=== PATIENT | female | born 1995 | race Caucasian/White ===

== ENCOUNTER 2023-12-17 07:43 | Inpatient (IN) ==
[2023-12-17] MEDS ORDERED: LIDOCAINE 1% LOCAL 20 ML VIAL INFIL PRN (07:52)
[2023-12-17] MEDS ORDERED: OXYTOCIN 30 UNITS/NSS 30 UNITS/500 ML BAG IV PRN ×2 (07:52→23:37)
[2023-12-17 08:19] LABS: Hemoglobin 13.2 g/dl (12.0-16.0); Mean Corpuscular Hemoglobin 30.2 pg (25.0-34.0); Mean Corpuscular Hgb Conc 34.7 g/dL (32.0-36.0); Mean Platelet Volume 10.8 fL (9.4-12.4); Platelet Count 192 K/uL (130-400); RDW Standard Deviation 40.5 fL (36.4-46.3); Red Blood Count 4.37 M/uL (4.20-5.40)
[2023-12-17] MEDS: LACTATED RINGER'S 1,000 ML IV PRN (12:56)
[2023-12-17] MEDS: OXYTOCIN 30 UNITS/NSS 30 UNITS/500 ML BAG IV PRN (13:03)
--- NOTE | 2023-12-17 16:30 | Anesthesiology Consultation ---
Date of Service December 17, 2023 Assessment & Plan (1) Encounter for pre-operative examination: Chart Review Chart Review: Acceptable Risk for Labor Epidural History Height/Weight Height: 5 ft 5 in Weight: 104.78 kg Allergies Allergy/AdvReac Type Severity Reaction Status Date / Time Poultry Allergy Severe Anaphylaxis Verified 12/17/23 08:02 avocado Allergy Unknown Anaphylaxis Verified 12/17/23 08:00 banana Allergy Unknown Anaphylaxis Verified 12/17/23 08:00 egg Allergy Anaphylaxis Verified 12/17/23 08:57 Medications Home Medications Medication Instructions Recorded Confirmed Last Taken [id number] 1 tab PO DAILY 10/31/23 12/17/23 12/12/23 08:30 [ Plus] Active Medications Generic Name Dose Route Start Last Admin Trade Name Freq PRN Reason Stop Dose Admin Oxytocin 30 units in 500 mls @ 12 mls/hr 12/17/23 07:52 12/17/23 15:35 Pitocin 30 Units/Nss IV 12/19/23 07:51 0.72 units/hr .Q24H PRN 12 mls/hr Labor Induction/Augmentation Titration Protocol 0.72 UNITS/HR Lactated Ringer's 1,000 mls @ 125 mls/hr 12/17/23 07:52 12/17/23 12:56 Lr IV 12/19/23 07:51 125 mls/hr .Q8H PRN Administration L&D Protocol Protocol Past Medical History Medical History HPV (human papilloma virus) infection Abnormal Pap smear of cervix 2015, paps normal since Chicken pox Migraine with aura Bipolar 2 disorder Anxiety Past Family History Family History Grandmother (Paternal) Breast cancer Mother Autoimmune disorder Thyroid disease Grandmother (Maternal) Autoimmune disorder Breast cancer Grandfather (Maternal) Diabetes Heart disease Father Hypertension Grandfather (Paternal) Lung cancer Denies family history of Ovarian cancer Colorectal cancer Past Surgical History Surgical History No pertinent past surgical history Social History Smoking Status: Former smoker Do You Dip or Chew Tobacco: No Smoking End Date: December 2022 Hx Alcohol Use: No Hx Substance Use: No Physical Exam Vital Signs Last Vital Signs Temp 36.9 C 12/17/23 12:27 Pulse 90 12/17/23 16:27 Resp 20 12/17/23 07:50 BP 141/91 H 12/17/23 16:22 Pulse Ox 100 12/17/23 16:27 Testing Laboratory Results 12/17/23 08:06 Blood Type A Positive 12/17/23 08:06 Antibody Screen NEGATIVE 12/17/23 08:06 12/17/23 12/17/23 12:58 09:05 POC Glucose 79 98
--- NOTE | 2023-12-17 16:41 | Labor Progress Brief Note ---
Date of Service December 17, 2023 Subjective Patient continues to be anxious and hesitant to have interventions. Agreeable to CVE and discuss further plan. Becoming crampy and uncomfortable but not ready for epidural yet. No ROM, no VB, good FM. Assessment & Plan (1) Encounter for induction of labor: Plan: Winn placed this AM and fell out in a short time. Patient was given a few hours to consider pitocin, discuss it, and feel ready for beginning that step before she consented to proceed further. Pitocin started and has been titrated per protocol. Patient has made small amount of cervical change. Would have discussed AROM vs epidural with her after this exam, but SROM occurred as soon as my fingers touched the bulging amnion. Patient aware this likely means contractions will increase in intensity and is now requesting epidural. Admission and Anticipated Discharge Date Admission Date: December 17, 2023 Physical Exam Genitourinary: Cvx /-2 Tense bulging bag; SROM occurred during exam for copious clear fluid. FHT Cat 1 [place]atte Q3-4 Pit @ 12 Results & Data Vital Signs (Past 12 Hours) Vital Signs Temp Pulse Resp BP Pulse Ox 12/17/23 16:32 99 12/17/23 16:32 92 H 12/17/23 16:27 100 12/17/23 16:27 90 12/17/23 16:22 88 12/17/23 16:22 141/91 H 12/17/23 15:16 93 H 12/17/23 15:16 131/90 12/17/23 14:05 91 H 12/17/23 14:05 134/86 12/17/23 13:09 111 H 12/17/23 13:09 131/87 12/17/23 12:27 98.4 F 12/17/23 12:10 96 H 12/17/23 12:10 136/89 12/17/23 10:36 103 H 12/17/23 10:36 131/90 12/17/23 08:24 99 H 12/17/23 08:24 128/87 12/17/23 08:09 104 H 12/17/23 08:09 132/85 12/17/23 08:08 98.4 F 104 H 132/85 12/17/23 07:53 123 H 128/87 12/17/23 07:50 20 12/17/23 07:50 98.4 F 20 Coding Level of Care Code None Diagnoses Encounter for induction of labor Z34.90
[2023-12-17] MEDS: BUPIVACAINE 0.25% PF 30 ML VIAL ONE (16:58)
[2023-12-17] MEDS ORDERED: ONDANSETRON INJ 2 MG/ML 2 ML VIAL IV PRN (16:59)
[2023-12-17] MEDS: fentANYL 2 MCG/ML BUPIVacaine 0.125%-NSS 100ML BAG ONE (16:59)
[2023-12-17] MEDS ORDERED: SODIUM CHLORIDE 0.9% PF INJ 10 ML VIAL EPI PRN (16:59)
[2023-12-17] MEDS ORDERED: ROPIVACAINE 0.5% PF 5 MG/ML 20 ML VIAL EPI PRN (16:59)
[2023-12-17] MEDS: fentaNYL citrate PF 100 MCG/2 ML VIAL ONE (16:59)
[2023-12-17] MEDS ORDERED: LIDOCAINE 2% MPF LOCAL 5 ML VIAL EPI PRN (16:59)
[2023-12-17] MEDS ORDERED: ePHEDrine sulfate 50 MG/ML AMP IV PRN (16:59)
[2023-12-17] MEDS ORDERED: NALOXONE HCL 0.4 MG/1 ML VIAL/CARP IV PRN (16:59)
[2023-12-17] MEDS ORDERED: fentaNYL citrate PF 100 MCG/2 ML VIAL EPI PRN (16:59)
[2023-12-17] MEDS ORDERED: NALOXONE HCL 1 MG in SODIUM CHLORIDE 0.9% 1,000 ML IV PRN (16:59)
[2023-12-17] MEDS: LIDOCAINE 2%/EPINEPHRINE 1:200,000 20 ML PF ONE (16:59)
[2023-12-17] MEDS ORDERED: BUPIVACAINE 0.25% PF 30 ML VIAL EPI PRN (16:59)
[2023-12-17] MEDS ORDERED: fentANYL 2 MCG/ML BUPIVacaine 0.125%-NSS 100ML BAG EPI PRN (16:59)
[2023-12-17] MEDS: ePHEDrine sulfate 50 MG/ML AMP ONE (17:19)
[2023-12-17] MEDS: SODIUM CHLORIDE 0.9% PF INJ 10 ML VIAL ONE (17:20)
[2023-12-17] MEDS: CALCIUM CARBONATE 500 MG CHEWABLE TAB PO PRN (17:48)
[2023-12-17] MEDS: BUPIVACAINE 0.25% PF 30 ML VIAL EPI STA (18:25)
[2023-12-17] MEDS: fentaNYL citrate PF 100 MCG/2 ML VIAL EPI STA (18:25)
[2023-12-17] MEDS: LIDOCAINE 2%/EPINEPHRINE 1:200,000 20 ML PF EPI STA (18:25)
[2023-12-17] MEDS: SODIUM CHLORIDE 0.9% PF INJ 10 ML VIAL EPI STA (18:26)
[2023-12-17] MEDS ORDERED: NURSING L&D Epidural Breakthrough Pain Update ONE (19:22)
[2023-12-17] MEDS: FAMOTIDINE 20MG IV PUSH 20 MG/5 ML SYR IV ONE (20:14)
--- NOTE | 2023-12-17 22:49 | Delivery Summary ---
Vaginal Delivery Summary Date of Service December 17, 2023 Vaginal Delivery Summary DIAGNOSES: 1. Verde intrauterine at 39w0d gestation. 2. Induction of Labor. 3. Group B Streptococcus Neg. PROCEDURE: Spontaneous vaginal delivery and repair of second degree laceration. SURGEON: Carito Escobar MD. CASTING HOUSE LABORER: None. QUANTITATIVE BLOOD LOSS: 38 mL. COMPLICATIONS: None. PLACENTA: Spontaneous and intact with a 3-vessel cord. DISPOSITION: Stable to labor and delivery. DESCRIPTION: The patient pushed well and brought the head to in DEANA position. The 's head restituted with left shoulder anterior, right shoulder posterior and right hand presenting compound alongside the chin, plus with a loop of cord traveling from the umbilicus over the R shoulder and pulled tight. There was a "turtle sign" with retraction of the head against the perineum immediately after delivery of the head. Ming and Suprapubic pressure were applied without movement. The patient was instructed to rest while I introduced my hand to the posterior vagina, and was able to sweep the R arm in physiologic fashion to deliver the posterior arm. After this was accomplished, Ming and Suprapubic Pressure were reapplied while the patient resumed pushing, and the anterior shoulder then delivered promptly. The remainder of the body delivered without any difficulty, and the infant was placed on the maternal abdomen. It was vigorous and moving all extremities, and making respiratory efforts. The cord was doubly clamped by the MD and then cut. The was taken to the warmer for attention, where it continued to cry audibly. The placenta delivered spontaneously and was noted to be intact and with a 3VC, though notable for a pseudoknot and marginal insertion. The cervix, vagina and perineum were examined and were found to have a second-degree laceration repaired with vicryl in the usual manner, including a crown stitch to rebuild the perineal body. The fundus was firm and lochia minimal immediately after delivery. [facility] Vaginal Delivery Charge Vaginal Delivery Codes: 70716 global code for the antepartum, delivery, and post-
[2023-12-17] MEDS ORDERED: oxyCODONE/ACETAMINOPHEN 5mg/325mg TAB PO PRN (23:37)
[2023-12-17] MEDS ORDERED: HYDROCORTISONE ACETATE 25 MG SUPP PR PRN (23:37)
[2023-12-17] MEDS: IBUPROFEN 600 MG TAB PO PRN (23:53)
[2023-12-18] MEDS: LIDOCAINE 2% JELLY 5 ML TUBE EXT ONE (00:01)
[2023-12-18] MEDS: ACETAMINOPHEN 325 MG TAB PO PRN (05:55)
[2023-12-18 06:16] LABS: Hematocrit (blood only) 36.3 % (37.0-47.0); Hemoglobin 12.3 g/dl (12.0-16.0); Mean Corpuscular Hemoglobin 29.9 pg (25.0-34.0); Mean Corpuscular Hgb Conc 33.9 g/dL (32.0-36.0); Mean Corpuscular Volume 88.3 fL (80.0-100.0); Mean Platelet Volume 10.8 fL (9.4-12.4); Platelet Count 167 K/uL (130-400); RDW Standard Deviation 41.1 fL (36.4-46.3); Red Blood Count 4.11 M/uL (4.20-5.40); White Blood Count 14.86 K/ul (4.8-10.8)
--- NOTE | 2023-12-18 06:47 | Obstetrical Progress Note ---
Date of Service December 18, 2023 Assessment & Plan (1) Encounter for assessment: Plan: Patient is PPD 1 s/p and doing well - Eating well, voiding well, ambulating well - vitals reviewed and within normal limits - pain well controlled with analgesics - OOB, ambulation, diet progression as tolerated - Blood type: A+, GBS neg, rubella immune - Plan to discharge tomorrow - After discharge, 6 week follow up with OB Admission and Anticipated Discharge Date Admission Date: December 17, 2023 Supervising Physician Co-Signing Physician Notes Resident Physician Supervision Note: I interviewed and examined the patient. Discussed with Dr. Larson and agree with findings and plan as documented in the note. Any exceptions or clarifications are listed here: [ ] Documented By: Carito Escobar MD, FACOG Subjective 28 yo post- day 1 s/p Ambulation: ambulating normally Voiding: no voiding problems Passing Gas:: Yes Diet Tolerance:: regular diet Lochia:: Small Feeding Type:: bottle feeding Current Pain Level: 3/10, endorses some cramps and pain while seated Resting comfortably this AM in NAD. Denies CARREON, CP, SOB, N/V/D, LE pain/swelling. Physical Exam Physical Exam: General: patient resting comfortably, NAD, non-toxic in appearance, answers questions appropriately. Skin: warm, dry, intact HEENT: NC/AT, anicteric sclera, conjunctiva without injection, moist mucus membranes. Heart: +S1/S2, regular, no m/r/g Lungs: equal air entry bilaterally, no rales/rhonchi/wheezes Abd: +BS, soft, NT/ND, uterine fundus firm at umbilicus Ext: warm, no clubbing/cyanosis or edema, Elian's neg. Neuro: nonfocal, speech intact, no facial droop, moving all extremities. Results & Data Vital Signs (Past 12 Hours) Vital Signs Temp Pulse Pulse Resp BP BP Pulse Ox 12/18/23 04:00 36.5 C 91 H 18 123/81 97 12/18/23 00:42 105 H 126/76 12/18/23 00:40 18 12/18/23 00:29 105 H 118/71 12/18/23 00:14 114 H 109/64 12/18/23 00:10 18 12/17/23 23:59 118 H 12/17/23 23:59 133/73 12/17/23 23:44 117 H 12/17/23 23:44 142/98 H 12/17/23 23:40 18 12/17/23 23:29 105 H 12/17/23 23:29 134/84 12/17/23 23:25 18 12/17/23 23:10 16 12/17/23 22:59 114 H 12/17/23 22:59 132/60 12/17/23 22:55 18 12/17/23 22:47 99 12/17/23 22:47 117 H 12/17/23 22:44 118 H 12/17/23 22:44 139/64 12/17/23 22:42 100 12/17/23 22:42 119 H 12/17/23 22:42 133/84 12/17/23 22:40 18 12/17/23 22:37 99 12/17/23 22:37 121 H 12/17/23 22:32 98 12/17/23 22:32 124 H 12/17/23 22:28 90 12/17/23 22:28 130 H 12/17/23 22:27 99 12/17/23 22:27 134 H 12/17/23 22:22 99 12/17/23 22:22 147 H 12/17/23 22:22 91 12/17/23 22:22 135 H 12/17/23 22:17 98 12/17/23 22:17 137 H 12/17/23 22:16 18 12/17/23 22:16 18 12/17/23 22:16 86 L 12/17/23 22:16 155 H 12/17/23 22:14 162 H 12/17/23 22:14 141/89 H 12/17/23 22:12 98 12/17/23 22:12 154 H 12/17/23 22:07 100 12/17/23 22:07 133 H 12/17/23 22:02 100 12/17/23 22:02 124 H 12/17/23 22:00 18 12/17/23 22:00 18 12/17/23 21:59 133 H 12/17/23 21:59 137/73 12/17/23 21:57 96 12/17/23 21:57 105 H 12/17/23 21:52 96 12/17/23 21:52 111 H 12/17/23 21:47 96 12/17/23 21:47 120 H 12/17/23 21:44 122 H 12/17/23 21:44 135/77 12/17/23 21:42 96 12/17/23 21:42 114 H 12/17/23 21:37 97 12/17/23 21:37 110 H 12/17/23 21:32 98 12/17/23 21:32 117 H 12/17/23 21:30 18 12/17/23 21:30 18 12/17/23 21:29 127 H 12/17/23 21:29 137/74 12/17/23 21:27 96 12/17/23 21:27 110 H 12/17/23 21:22 97 12/17/23 21:22 113 H 12/17/23 21:17 99 12/17/23 21:17 114 H 12/17/23 21:15 117 H 12/17/23 21:15 134/81 12/17/23 21:12 100 12/17/23 21:12 117 H 12/17/23 21:07 99 12/17/23 21:07 113 H 12/17/23 21:02 100 12/17/23 21:02 121 H 12/17/23 21:00 18 12/17/23 21:00 36.6 C 18 12/17/23 20:57 100 12/17/23 20:57 123 H 12/17/23 20:52 100 12/17/23 20:52 120 H 12/17/23 20:47 100 12/17/23 20:47 123 H 12/17/23 20:45 116 H 12/17/23 20:45 128/85 12/17/23 20:42 100 12/17/23 20:42 116 H 12/17/23 20:37 100 12/17/23 20:37 117 H 12/17/23 20:32 99 12/17/23 20:32 109 H 12/17/23 20:30 18 12/17/23 20:30 18 12/17/23 20:30 111 H 12/17/23 20:30 138/88 12/17/23 20:27 98 12/17/23 20:27 118 H 12/17/23 20:22 100 12/17/23 20:22 110 H 12/17/23 20:17 99 12/17/23 20:17 114 H 12/17/23 20:14 115 H 12/17/23 20:14 146/87 H 12/17/23 20:12 98 12/17/23 20:12 120 H 12/17/23 20:07 99 12/17/23 20:07 116 H 12/17/23 20:02 99 12/17/23 20:02 115 H 12/17/23 20:00 20 12/17/23 20:00 20 12/17/23 19:59 117 H 12/17/23 19:59 142/88 H 12/17/23 19:57 99 12/17/23 19:57 116 H 12/17/23 19:52 98 12/17/23 19:52 123 H 12/17/23 19:47 100 12/17/23 19:47 116 H 12/17/23 19:45 116 H 12/17/23 19:45 131/77 12/17/23 19:42 99 12/17/23 19:42 116 H 12/17/23 19:37 98 12/17/23 19:37 106 H 12/17/23 19:32 99 12/17/23 19:32 107 H 12/17/23 19:30 18 12/17/23 19:30 36.8 C 18 12/17/23 19:30 106 H 12/17/23 19:30 128/80 12/17/23 19:27 98 12/17/23 19:27 110 H 12/17/23 19:22 94 12/17/23 19:22 106 H 12/17/23 19:17 99 12/17/23 19:17 98 H 12/17/23 19:14 88 12/17/23 19:14 118/56 L 12/17/23 19:12 99 12/17/23 19:12 96 H 12/17/23 19:07 99 12/17/23 19:07 93 H 12/17/23 19:02 98 12/17/23 19:02 118 H 12/17/23 18:57 100 12/17/23 18:57 113 H 12/17/23 18:52 100 12/17/23 18:52 105 H 12/17/23 18:47 100 12/17/23 18:47 106 H 12/17/23 18:45 95 H 12/17/23 18:45 135/87 O2 Del Method 12/18/23 04:00 Room Air 12/18/23 00:42 12/18/23 00:40 12/18/23 00:29 12/18/23 00:14 12/18/23 00:10 12/17/23 23:59 12/17/23 23:59 12/17/23 23:44 12/17/23 23:44 12/17/23 23:40 12/17/23 23:29 12/17/23 23:29 12/17/23 23:25 12/17/23 23:10 12/17/23 22:59 12/17/23 22:59 12/17/23 22:55 12/17/23 22:47 12/17/23 22:47 12/17/23 22:44 12/17/23 22:44 12/17/23 22:42 12/17/23 22:42 12/17/23 22:42 12/17/23 22:40 12/17/23 22:37 12/17/23 22:37 12/17/23 22:32 12/17/23 22:32 12/17/23 22:28 12/17/23 22:28 12/17/23 22:27 12/17/23 22:27 12/17/23 22:22 12/17/23 22:22 12/17/23 22:22 12/17/23 22:22 12/17/23 22:17 12/17/23 22:17 12/17/23 22:16 12/17/23 22:16 12/17/23 22:16 12/17/23 22:16 12/17/23 22:14 12/17/23 22:14 12/17/23 22:12 12/17/23 22:12 12/17/23 22:07 12/17/23 22:07 12/17/23 22:02 12/17/23 22:02 12/17/23 22:00 12/17/23 22:00 12/17/23 21:59 12/17/23 21:59 12/17/23 21:57 12/17/23 21:57 12/17/23 21:52 12/17/23 21:52 12/17/23 21:47 12/17/23 21:47 12/17/23 21:44 12/17/23 21:44 12/17/23 21:42 12/17/23 21:42 12/17/23 21:37 12/17/23 21:37 12/17/23 21:32 12/17/23 21:32 12/17/23 21:30 12/17/23 21:30 12/17/23 21:29 12/17/23 21:29 12/17/23 21:27 12/17/23 21:27 12/17/23 21:22 12/17/23 21:22 12/17/23 21:17 12/17/23 21:17 12/17/23 21:15 12/17/23 21:15 12/17/23 21:12 12/17/23 21:12 12/17/23 21:07 12/17/23 21:07 12/17/23 21:02 12/17/23 21:02 12/17/23 21:00 12/17/23 21:00 12/17/23 20:57 12/17/23 20:57 12/17/23 20:52 12/17/23 20:52 12/17/23 20:47 12/17/23 20:47 12/17/23 20:45 12/17/23 20:45 12/17/23 20:42 12/17/23 20:42 12/17/23 20:37 12/17/23 20:37 12/17/23 20:32 12/17/23 20:32 12/17/23 20:30 12/17/23 20:30 12/17/23 20:30 12/17/23 20:30 12/17/23 20:27 12/17/23 20:27 12/17/23 20:22 12/17/23 20:22 12/17/23 20:17 12/17/23 20:17 12/17/23 20:14 12/17/23 20:14 12/17/23 20:12 12/17/23 20:12 12/17/23 20:07 12/17/23 20:07 12/17/23 20:02 12/17/23 20:02 12/17/23 20:00 12/17/23 20:00 12/17/23 19:59 12/17/23 19:59 12/17/23 19:57 12/17/23 19:57 12/17/23 19:52 12/17/23 19:52 12/17/23 19:47 12/17/23 19:47 12/17/23 19:45 12/17/23 19:45 12/17/23 19:42 12/17/23 19:42 12/17/23 19:37 12/17/23 19:37 12/17/23 19:32 12/17/23 19:32 12/17/23 19:30 12/17/23 19:30 12/17/23 19:30 12/17/23 19:30 12/17/23 19:27 12/17/23 19:27 12/17/23 19:22 12/17/23 19:22 12/17/23 19:17 12/17/23 19:17 12/17/23 19:14 12/17/23 19:14 12/17/23 19:12 12/17/23 19:12 12/17/23 19:07 12/17/23 19:07 12/17/23 19:02 12/17/23 19:02 12/17/23 18:57 12/17/23 18:57 12/17/23 18:52 12/17/23 18:52 12/17/23 18:47 12/17/23 18:47 12/17/23 18:45 12/17/23 18:45 Resident Activity Tracking Resident Involvement: Resident Care Provided Care Provided: OB Delivery (1) Encounter for assessment visit type: exam and care immediately after delivery Qualified Code(s): Z39.0 - Encounter for care and examination of mother immediately after delivery
[2023-12-18] MEDS: BENZOCAINE 20% SPRY 85 APPLN/85 GM CAN EXT PRN (07:51)
--- NOTE | 2023-12-18 08:25 | Anesthesia Procedure Note ---
Date of Service December 18, 2023 Anesthesia Post Epidural Note Vital Signs Vital Signs: Temp Pulse Resp BP Pulse Ox O2 Del Method 36.5 C 91 H 18 123/81 97 Room Air 12/18/23 04:00 12/18/23 04:00 12/18/23 04:00 12/18/23 04:00 12/18/23 04:00 12/18/23 04:00 Pain Intensity Lower Abdomen: Pain Intensity: 3 Head: Pain Intensity: 3 Notes Mental Status: alert / awake / arousable Nausea / Vomiting: adequately controlled Pain: adequately controlled Airway Patency, RR, SpO2: stable & adequate BP & HR: stable & adequate Hydration State: stable & adequate Neuraxial Anesthesia: was administered and sensory block is resolving Anesthetic Complications: no major complications apparent and Pt Satisfied with anesthetic care Epidural: Removed without complications and With tip intact
[2023-12-18] MEDS ORDERED: POLYETHYLENE (MIRALAX) 17 GM PACK PO PRN (09:49)
[2023-12-18] MEDS: PRENATAL VITAMIN 1 TAB PO SCH (10:33)
[2023-12-18] MEDS: MAGNESIUM HYDROXIDE SUSP 30 ML UDC PO PRN (10:33)
[2023-12-18] MEDS ORDERED: CETIRIZINE HCL 10 MG TABLET PO ONE (13:44)
[2023-12-18] MEDS: FLUTICASONE PROPIONATE NA SPR 16 GM BTL SCH (14:23)
[2023-12-18] MEDS: CETIRIZINE HCL 10 MG TABLET PO SCH (14:23)
--- NOTE | 2023-12-18 15:29 | Electrocardiogram Report ---
Test Reason : Blood Pressure : */* mmHG Vent. Rate : 93 BPM Atrial Rate : 93 BPM P-R Int : 150 ms QRS Dur : 82 ms QT Int : 354 ms P-R-T Axes : 21 31 38 degrees QTcB Int : 440 ms Normal sinus rhythm Normal ECG No previous ECGs available Confirmed by Richy Montes ([id number]) on 12/18/2023 3:29:24 PM Referred By: Carito Escobar Confirmed By: Richy Montes
[2023-12-18] MEDS ORDERED: bisacodyL 5 MG TABEC PO SCH (20:00)
[2023-12-18 23:26] VITALS: RESP 16; O2SAT 98
[2023-12-19] MEDS ORDERED: bisacodyL 10 MG SUPP PR PRN
[2023-12-19 06:30] LABS: Hemoglobin 12.1 g/dl (12.0-16.0)
--- NOTE | 2023-12-19 06:45 | Obstetrical Progress Note ---
Date of Service December 19, 2023 Assessment & Plan (1) Encounter for assessment: Plan: Patient is PPD 2 s/p and doing well - Eating well, voiding well, ambulating well - vitals reviewed and within normal limits - pain well controlled with analgesics - OOB, ambulation, diet progression as tolerated - Blood type: A+, GBS neg, rubella immune - Plan to discharge today - After discharge, 6 week follow up with OB Admission and Anticipated Discharge Date Admission Date: December 17, 2023 Supervising Physician Co-Signing Physician Notes Resident Physician Supervision Note: I interviewed and examined the patient. Discussed with Dr. Larson and agree with findings and plan as documented in the note. Any exceptions or clarifications are listed here: [None] Documented By: Lamar Mora MD, FACOG Subjective 28 yo post- day 2 s/p Ambulation: ambulating normally Voiding: no voiding problems Passing Gas:: Yes Diet Tolerance:: regular diet Lochia:: Small Feeding Type:: bottle feeding Current Pain Level: 2/10, endorses some cramps while seated and migraine this morning Resting comfortably this AM in NAD. Denies CARREON, CP, SOB, N/V/D, LE pain/swelling. Physical Exam Physical Exam: General: patient resting comfortably, NAD, non-toxic in appearance, answers questions appropriately. Skin: warm, dry, intact HEENT: NC/AT, anicteric sclera, conjunctiva without injection, moist mucus membranes. Heart: +S1/S2, regular, no m/r/g Lungs: equal air entry bilaterally, no rales/rhonchi/wheezes Abd: +BS, soft, NT/ND, uterine fundus firm at umbilicus Ext: warm, no clubbing/cyanosis or edema, Elian's neg. Neuro: nonfocal, speech intact, no facial droop, moving all extremities. Results & Data Vital Signs (Past 12 Hours) Vital Signs Temp Pulse Resp BP Pulse Ox O2 Del Method 12/18/23 23:15 36.9 C 102 H 16 124/80 98 Room Air 12/18/23 20:15 36.5 C 98 H 18 122/79 99 Room Air Resident Activity Tracking Resident Involvement: Resident Care Provided Care Provided: OB Delivery (1) Encounter for assessment visit type: exam and care immediately after delivery Qualified Code(s): Z39.0 - Encounter for care and examination of mother immediately after delivery
[2023-12-19 10:42] VITALS: BP 125/83; PULSE 98; TEMP 97.7
== END 2023-12-19 13:45 | disposition home or self-care (01) | DRG 807 ==
LOC: 4S1 07:43 → 4E2 12-18 01:01